=== PATIENT | male | born 1965 | race Caucasian/White ===

== ENCOUNTER 2017-04-07 08:47 | Day surgery (SDC) | payer OTHER ==
--- NOTE | 2017-04-03 12:15 | HP ---
CORRECTION ADDENDUM NOW INCLUDED ON THIS REPORT PREOPERATIVE HISTORY AND PHYSICAL: DATE OF SURGERY/ADMISSION: 04/07/17 DATE OF OFFICE VISIT/ENCOUNTER: 03/19/17 ATTENDING SURGEON: Mili Graahm MD * (DICTATED BY JAYDEN CAMARILLO) PROCEDURE: Left ulnar nerve decompression at the elbow. CHIEF COMPLAINT: Numbness and tingling, ulnar nerve distribution, left hand. HISTORY OF PRESENT ILLNESS: This is a 51-year-old male who sustained a work- related injury on 02/20/12. Since then, he has had symptoms of ulnar neuropathy in his left upper extremity. He is complaining of numbness and tingling in his left forearm on the ulnar aspect and also into his pinkie and ring finger. Clinically, he has symptoms consistent with ulnar neuropathy, compression at the elbow. He recently underwent a left ulnar shortening osteotomy to help alleviate some of the discomfort at his wrist, but the numbness and tingling symptoms have persisted. He is now consented to proceed with a left ulnar nerve decompression at the elbow. PAST MEDICAL HISTORY: Hypercholesterolemia. PAST SURGICAL HISTORY: 1. Left ulnar shortening osteotomy. 2. Left wrist arthroscopy. CURRENT MEDICATIONS: 1. Crestor 20 mg daily. 2. Echinacea daily. 3. Ibuprofen 800 mg one tab p.o. q.8 hours p.r.n. pain. 4. Vitamin C. ALLERGIES: No known drug allergies. FAMILY MEDICAL HISTORY: Heart disease, hypertension, and diabetes. 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 He admits to chewing tobacco. He has done so for the past 10 or so years. He denies recreational drug use. He does drink alcohol on occasion. REVIEW OF SYSTEMS: General: Negative for fevers, chills, or night sweats. No known anesthesia problems. HEENT: Negative for headache, lightheadedness, or syncopal episodes. Integumentary: Negative for abrasions, lesions, or open wounds. Cardiothoracic: Negative for hypertension, chest pain, palpitations, or edema. Pulmonary: Negative for shortness of breath with exertion, chronic cough, COPD. GI: Negative for nausea, vomiting, diarrhea, constipation, or GERD. : Negative for nocturia, urinary frequency, urgency, history of UTIs, or kidney problems. Musculoskeletal: Positive for current complaint. Negative for chronic or intermittent back pain or history of fractures. Neurologic: Positive for numbness and tingling in the ulnar nerve distribution in the left upper extremity. Negative for history of seizure, stroke, or epilepsy. Endocrine: Negative for diabetes or thyroid issues. Hematologic: Negative for easy bruising, anemia, excessive bleeding, or history of DVT. Infectious Disease: Negative for history of MRSA, hepatitis C, or HIV. PHYSICAL EXAMINATION GENERAL: Well-developed, well-nourished 51-year-old male in no acute distress. VITAL SIGNS: Height 5 feet 11 inches, weight is 184 pounds. Pulse rate 72, blood pressure 140/88. HEENT: Normocephalic, atraumatic. Pupils are equal, round, and reactive to light and accommodation. Extraocular movements are intact. Throat is clear. NECK: Supple. No palpable lymph nodes. PULMONARY: Lungs are clear to auscultation bilaterally. No wheezes, rales, or rhonchi. CARDIOVASCULAR: Regular rate and rhythm. S1, S2. No murmurs, rubs, or gallops. No edema. ABDOMEN: Positive bowel sounds, soft, nontender. NEUROLOGIC: Alert and oriented x3. Cranial nerves II through XII are intact. MUSCULOSKELETAL: On exam of his left upper extremity, he has tenderness to palpation at the left elbow over the cubital tunnel ulnar nerve. He has a positive Tinel's over the ulnar nerve. He has no visible wasting in the hand of interosseous musculature; however, he has weakness with abduction of the fingers. He reports slight decrease in sensation to light touch along the ulnar nerve distribution left hand. IMPRESSION: Left ulnar neuropathy of the elbow. PLAN: The patient is scheduled to undergo a left ulnar nerve decompression of the elbow with Dr. Graham on 04/07/17. He will return to the office in 10 to 14 days postop for followup and suture removal. A prescription for [place] was e- scribed to the patient's pharmacy for postoperative pain management. CORRECTION ADDENDUM TO PREOPERATIVE HISTORY AND PHYSICAL: DATE OF SURGERY/ADMISSION: 04/07/17 SURGEON: Mili Graham MD PROCEDURE: Left ulnar nerve decompression at the elbow. PHYSICAL EXAMINATION CARDIOVASCULAR: S1, S2. Faint murmur detected upon auscultation. I believe it to be a mid systolic murmur. No rubs or gallops. PLAN: The patient was instructed to follow up with his primary care physician regarding possible detected cardiac murmur. JAYDEN CAMARILLO [id number]/[facility]PS #: [id number]/CPS #: [id number] ILDEFONSO
--- NOTE | 2017-04-03 15:35 | HP ---
CORRECTION TO PREOPERATIVE HISTORY AND PHYSICAL: DATE OF SURGERY/ADMISSION: 04/07/17 SURGEON: Mili Graham MD PROCEDURE: Left ulnar nerve decompression at the elbow. PHYSICAL EXAMINATION CARDIOVASCULAR: S1, S2. Faint murmur detected upon auscultation. I believe it to be a mid systolic murmur. No rubs or gallops. PLAN: The patient was instructed to follow up with his primary care physician regarding possible detected cardiac murmur. JAYDEN CAMARILLO [id number]/[facility] #: [id number] ILDEFONSO
[~2017-04-07 08:47] MED LIST: Buffered Lidocaine 0.9% SYRIN* 5 ML/SYR SYRINGE INTRADERM ONE
[2017-04-07] MEDS ORDERED: ceFAZolin 2 GM PREMIX (*) 2 GM/50 ML BAG IVPB ONE (09:33)
[2017-04-07] MEDS ORDERED: Lidocaine 1% INJ* 10 MG/ML 30 ML SDV ONE (10:26)
[2017-04-07] MEDS ORDERED: Midazolam* 1 MG/ML 2 ML VIAL (2 MG) ONE (10:29)
[2017-04-07] MEDS ORDERED: fentaNYL* 50 MCG/ML 2 ML VIAL (100 MCG VIAL) ONE (10:29)
[2017-04-07] MEDS ORDERED: Propofol* 10 MG/ML 20 ML BTL IV PUSH ONE (11:00)
[2017-04-07 11:49] VITALS: BP 131/83
[2017-04-07] MEDS ORDERED: HYDROcodone/ACETAMIN 5-325 MG* 1 TAB ONE ×2 (11:53→11:57)
--- NOTE | 2017-04-08 01:31 | OP ---
DATE OF OPERATION: 04/07/17 [facility] DATE OF : 67 SURGEON: Mili Graham MD ENGAGEMENT SPECIALIST: JAYDEN Kelley. ANESTHESIA: Local MAC. PRE-OP DIAGNOSIS: Left ulnar nerve entrapment at the elbow. POST-OP DIAGNOSIS: Left ulnar nerve entrapment at the elbow. OPERATIVE PROCEDURE: Left ulnar nerve decompression of the elbow. ESTIMATED BLOOD LOSS: Zero. TOURNIQUET TIME: About 30 minutes. INDICATIONS FOR PROCEDURE: Nahun is a 51-year-old man who suffered an injury at work. Since then, he has had numbness and tingling in the ulnar nerve distribution of his left hand. He presents for ulnar nerve decompression of the left elbow, where he has significant ulnar nerve irritation symptoms. DESCRIPTION OF PROCEDURE: The patient was brought to the operating room, was given sedation anesthetic and a local infiltration of 10 cc of 1% plain lidocaine on the medial aspect of the left elbow. The skin of his left hand and forearm and elbow was prepped and draped in the usual sterile fashion. The upper extremity was exsanguinated and the tourniquet elevated to 250 mmHg. A curvilinear incision was made centered between the medial epicondyle and the tip of the olecranon process. The ulnar nerve was located proximally and carefully dissected out proximal through the cubital tunnel and into the FCU muscle. The superficial and deep portion of the FCU fascia was divided to completely release the nerve. The medial inner muscular septum, which had a very sharp edge was also divided. The nerve appeared to be in good condition. The wound was irrigated. The subcutaneous tissue was closed with 2-0 Polysorb suture and the skin with skin taras. The wound was dressed with Xeroform, 4x4 , Webril, and an Kenny wrap. The patient tolerated the procedure well, was brought to the recovery room in good condition. [id number]/[facility] #: [id number] MTDVickie
== END 2017-04-07 12:15 | disposition home or self-care (01) ==
LOC: OREAST 08:47
PROVIDERS: ATTEND Orthopaedic Surgery
DX: G56.22 Lesion of ulnar nerve, left upper limb (principal); E78.00 Pure hypercholesterolemia, unspecified; Z72.0 Tobacco use
CPT/HCPCS: J0690; J2250; J2704; J3010

== ENCOUNTER 2017-09-08 06:18 | Day surgery (SDC) | payer OTHER ==
--- NOTE | 2017-08-31 15:10 | HP ---
AMENDED REPORT NOW INCLUDES COSIGNER DESIGNATION - ESIGNED BEFORE ADJUSTMENTS PREOPERATIVE HISTORY AND PHYSICAL: DATE OF ADMISSION/SURGERY: 09/08/17 DATE OF OFFICE VISIT/ENCOUNTER: 08/26/17 ATTENDING SURGEON: Mili Graham MD * (DICTATED BY JAYDEN CAMARILLO) PROCEDURE: Left wrist arthroscopy, triangular fibrocartilage complex debridement, and ulnar shortening osteotomy. CHIEF COMPLAINT: Persistent left wrist pain. HISTORY OF PRESENT ILLNESS: This is a 52-year-old male, who has had fairly persistent left wrist pain dating back to a work-related injury in 2011. He did have surgery on this wrist in the past including a left wrist arthroscopy in December of 2012 that was done in [place]. He then underwent a left ulnar shortening osteotomy by Dr. Graham in December of 2015 and also has had a left ulnar nerve decompression at the elbow by Dr. Graham in March of 2017. After his ulnar shortening osteotomy in 2015, he did begin to improve, but then plateaued with physical therapy and the pain in his left wrist persists. He received a cortisone injection for this problem a few months ago and that did provide him some relief, but the pain then returned. He has now consented to proceed with repeat left wrist arthroscopy, TFCC debridement, and further shortening of the ulna. PAST MEDICAL HISTORY: Hypercholesterolemia. PAST SURGICAL HISTORY: 1. Ulnar nerve decompression at the elbow, March of 2017, Dr. Graham. 2. Left ulnar shortening osteotomy, December 2015, Dr. Graham. 3. Left wrist arthroscopy, December 2012, in [place]. CURRENT MEDICATIONS: 1. Crestor 20 mg daily. 2. Ibuprofen 800 mg 1 tab 3 times a day p.r.n. 3. Vitamin C daily. ALLERGIES: No known drug allergies. FAMILY MEDICAL HISTORY: Heart disease, hypertension, and diabetes. 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 He admits to chewing tobacco and has done so for the 10 plus past years. He denies recreational drug use. He drinks alcohol on occasion. REVIEW OF SYSTEMS: General: Negative for fevers, chills, or night sweats. No known anesthesia problems. HEENT: Negative for headache, lightheadedness, syncopal episodes. Integumentary: Negative for abrasions, lesions, or open wounds. Cardiothoracic: Negative for hypertension, chest pain, palpitations, or edema. Pulmonary: Negative for shortness of breath with exertion, chronic cough, COPD. GI: Negative for nausea, vomiting, diarrhea, constipation, and GERD. : Negative for nocturia, urinary frequency, urgency, history of UTIs, or kidney problems. Musculoskeletal: Positive for current complaint. Negative for chronic or intermittent back pain or history of fractures. Neurologic: Negative for paresthesias, numbness, history of seizure, stroke, poor balance. Endocrine: Negative for diabetes and thyroid issues. Hematologic : Negative for easy bruising, anemia, bleeding disorders, history of DVT. Infectious Disease: Negative for history of MRSA, hepatitis C, HIV. PHYSICAL EXAMINATION GENERAL: Well-developed, well-nourished, 52-year-old male, in no acute distress. VITAL SIGNS: Height 5 feet 11 inches, weight 193 pounds, pulse rate 75, blood pressure 126/82. HEENT: Normocephalic, atraumatic. Pupils are equal, round, and reactive to light and accommodation. Extraocular movements are intact. Throat is clear. NECK: Supple. No palpable lymph nodes. PULMONARY: Lungs are clear to auscultation bilaterally. No wheezes, rales, or rhonchi. CARDIOVASCULAR: Regular rate and rhythm. S1, S2. No murmurs, rubs, or gallops. No edema. ABDOMEN: Positive bowel sounds, soft, nontender. NEUROLOGICAL: Alert and oriented x3. Cranial nerves II through XII are intact. Sensation is intact to light touch. MUSCULOSKELETAL: On exam of his left wrist, there is no visible swelling. He has tenderness to palpation in the area of the TFCC. No tenderness along the ulna plate. He has mildly limited range of motion in both flexion and extension of the wrist, increased pain with ulnar deviation. Neurovascular function is intact. IMAGING STUDIES: X-rays, AP, lateral, and oblique of the left wrist show the plate and screws in the left ulna to be in good position. There is an ulnar neutral variance. IMPRESSION: Persistent left wrist pain. PLAN: The patient is scheduled to undergo a left wrist arthroscopy, TFCC debridement, and ulnar shortening osteotomy with Dr. Graham on 09/08/17. He will return to the office 10 days postop for followup and suture removal. A prescription for [place] was e-scribed to the patient's pharmacy for postoperative pain management. JAYDEN CAMARILLO [id number]/[facility] #: [id number] [facility] HOSPITALVickie
[~2017-09-08 06:18] MED LIST changes: +Sodium Citrate/Citric Acid* 15 ML UDC PO ONE
[2017-09-08] MEDS ORDERED: Sodium Citrate/Citric Acid* 15 ML UDC ONE (06:20)
[2017-09-08] MEDS ORDERED: ceFAZolin 2 GM PREMIX (*) 2 GM/50 ML BAG IVPB ONE (06:28)
[2017-09-08] MEDS ORDERED: Bupivacaine 0.5%* 50 ML VIAL ONE (07:26)
[2017-09-08] MEDS ORDERED: fentaNYL* 50 MCG/ML 2 ML VIAL (100 MCG VIAL) ONE (07:28)
[2017-09-08] MEDS ORDERED: Midazolam* 1 MG/ML 2 ML VIAL (2 MG) ONE (07:28)
[2017-09-08] MEDS ORDERED: Lidocaine 2% PF * 5 ML VIAL ONE (07:29)
[2017-09-08] MEDS ORDERED: Propofol* 10 MG/ML 20 ML BTL IV PUSH ONE (07:29)
[2017-09-08] MEDS ORDERED: methylPREDNISolone ACETATE 80* 80 MG/ML 1 ML VIAL ONE (08:26)
[2017-09-08] MEDS ORDERED: Ondansetron INJ* 2 MG/ML VIAL IV PRN (08:44)
[2017-09-08] MEDS ORDERED: Naloxone* 0.4 MG/ML 1 ML VIAL IV PRN (08:44)
[2017-09-08] MEDS ORDERED: fentaNYL* 50 MCG/ML 2 ML VIAL (100 MCG VIAL) IV PRN (08:44)
[2017-09-08] MEDS ORDERED: Ketorolac INJ* 30 MG/ML 1 ML VIAL IV PRN (08:44)
[2017-09-08] MEDS ORDERED: HYDROcodone/ACETAMIN 5-325 MG* 1 TAB ONE (09:04)
[2017-09-08 09:33] VITALS: BP 150/92
--- NOTE | 2017-09-09 13:39 | OP ---
DATE OF OPERATION: 09/08/17 [facility] DATE OF : 67 SURGEON: Dr. Graham. POWER MACHINE OPERATOR: JAYDEN Kelley. ANESTHESIA: General. 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 POST-OP DIAGNOSIS: Triangular fibrocartilage complex tear, left wrist. OPERATIVE PROCEDURE: Left wrist arthroscopy, TFCC debridement, and cortisone injection in the left wrist. ESTIMATED BLOOD LOSS: Zero. TOURNIQUET TIME: Approximately half an hour. INDICATIONS FOR PROCEDURE: Nahun is a 52-year-old male who suffered an injury at work a few years ago. He has had persistent ulnar-sided wrist pain on the left even after an ulnar shortening osteotomy and an ulnar nerve decompression. He presents for a possible redo ulnar shortening osteotomy and wrist arthroscopy on the left. DESCRIPTION OF PROCEDURE: The patient was brought to the operating room and was given a general anesthetic and placed in the supine position on the operating table with a tourniquet around his left upper arm. Skin of his left upper extremity was prepped and draped in the usual sterile fashion. The hand and forearm were exsanguinated and the tourniquet elevated to 250 mmHg. The radiocarpal joint was filled with 10 cc of 0.5% Marcaine without epinephrine and then stab incision was made just distal to Neal's tubercle. The arthroscope was placed in the radiocarpal joint after traction was placed across the wrist, 10 pounds. Diagnostic arthroscopy was performed. Scapholunate ligament was intact. The articular surface of the scaphoid, radius , lunate, and triquetrum were intact. The lunotriquetral ligament was intact. There was a tear of the TFCC and abundant surrounding synovitis. A second portal was created in the 4-5 interval and a 2.0 Gator shaver was placed in the joint to debride the synovitis and the TFCC tear. It was not able to drive the scope through the scapholunate interval into the mid carpal joint. A third stab incision was made and the scope was placed in the mid carpal joint and I was able to see the scapholunate. Scaphoid and lunate were well opposed without any gapping and similarly the lunate and triquetrum were well opposed without any gapping. The articular surfaces were in good condition. The arthroscopy instruments are removed and the C-arm was then brought in and with the elbow flexed to 90 degrees and the shoulder abducted, an x-ray of the wrist was obtained, which showed that the naturality of the distal radioulnar joint was about 1 mm negative ulnar variance, so it was decided not to further shorten the ulna. The arthroscopy wounds were closed with 4-0 nylon suture and then dressed with Xeroform, 4x4, Webril, and an Kenny wrap. The patient tolerated the procedure well and was brought to the recovery in good condition. [id number]/[facility] #: [id number] MTDD
--- NOTE | 2017-09-09 16:42 | RAD ---
CPT II Codes: G9500 INDICATION: Chronic left wrist pain TECHNIQUE: Intraoperative fluoroscopy was provided during left wrist arthroscopy, debridement and ulnar shortening. FINDINGS: 2 spot films depict the left wrist. What appears to be in neutral position and radial flexion. Fluoroscopy time: 43 seconds IMPRESSION: As above.
== END 2017-09-08 09:34 | disposition home or self-care (01) ==
LOC: OREAST 06:18
PROVIDERS: ATTEND Orthopaedic Surgery
DX: M24.132 Other articular cartilage disorders, left wrist (principal); G56.22 Lesion of ulnar nerve, left upper limb; E78.00 Pure hypercholesterolemia, unspecified; M25.532 Pain in left wrist; M85.832 Other specified disorders of bone density and structure, left forearm
CPT/HCPCS: 76000; A9270-GY; J0690; J1040; J2250; J2704; J3010